=== PATIENT | male | born 1955 | race Caucasian/White ===

== ENCOUNTER → 2017-11-04 | Outpatient (CLI) | payer OTHER ==
[~2017-11-04] MED LIST: ALBUTEROL 0.083% (NEB) 2.5 MG/3 ML AMP
== END | disposition home or self-care (01) ==
LOC: PUL 13:55
DX: R91.8 Other nonspecific abnormal finding of lung field (principal); J44.9 Chronic obstructive pulmonary disease, unspecified
CPT/HCPCS: 94060; 94726; 94729

== ENCOUNTER 2018-02-08 07:01 | Inpatient (IN) | payer OTHER ==
[~2018-02-08 07:01] MED LIST changes: -ALBUTEROL 0.083% (NEB) 2.5 MG/3 ML AMP; +PROPOFOL 200 MG INJ; +SUCCINYLCHOLINE CHLORIDE 100 MG/5 ML SYG IV
[2018-02-08] MEDS ORDERED: MINERAL OIL LIGHT 10 ML VIAL (09:20)
[2018-02-08] MEDS ORDERED: BUPIVACAINE 0.5%/EPI (SDV) 30 ML INJ (09:32)
[2018-02-08] MEDS ORDERED: THROMBIN 5000 UNIT VIAL (09:32)
[2018-02-08] MEDS ORDERED: LIDOCAINE 0.5% (MDV) 50 ML INJ (09:32)
[2018-02-08] MEDS ORDERED: ROCURONIUM 50 MG INJ (09:36)
[2018-02-08] MEDS ORDERED: PROPOFOL 20 ML (09:36)
[2018-02-08] MEDS ORDERED: MIDAZOLAM 1 MG/ML 2 ML INJ (09:36)
[2018-02-08] MEDS ORDERED: LIDOCAINE 1% (MDV) 20 ML INJ (09:36)
[2018-02-08] MEDS ORDERED: CEFAZOLIN 1 GM INJ (10:48)
[2018-02-08] MEDS ORDERED: ONDANSETRON 4 MG INJ (11:06)
[2018-02-08] MEDS ORDERED: FAMOTIDINE 20 MG INJ (11:06)
[2018-02-08] MEDS ORDERED: DEXAMETHASONE 4 MG/ML 1 ML INJ (11:06)
[2018-02-08] MEDS ORDERED: ACETAMINOPHEN 1000MG/100ML IV 100 ML (11:07)
[2018-02-08] MEDS ORDERED: PHENYLephrine (100 MCG/ML) 5ML SYG ×3 (11:12→13:49)
[2018-02-08] MEDS ORDERED: FENTAnyl 50 MCG/ML VIAL (11:37)
[2018-02-08] MEDS ORDERED: LABETALOL HCL 20MG INJ (13:35)
[2018-02-08] MEDS ORDERED: SUGAMMADEX SODIUM 200 MG/2 ML VIAL IV (13:48)
[2018-02-08] MEDS: HYDROmorphONE 4 MG/ML SYG IV (14:01)
[2018-02-08] MEDS ORDERED: FLUMAZENIL 0.5 MG INJ (14:28)
[2018-02-08] MEDS ORDERED: LABETALOL HCL 20MG INJ IV (15:00)
[2018-02-08] MEDS: HYDROmorphONE 0.5 MG/0.5 ML SYG IV ×5 (15:11→16:01)
[2018-02-08] MEDS: ONDANSETRON 4 MG INJ IV (15:24)
[2018-02-08] MEDS: hydrALAzine 20 MG INJ IV ×2 (15:33→18:15)
[2018-02-08 16:01] LABS: ADD MAN DIFF? NO
[2018-02-08 16:04] LABS: WHITE BLOOD COUNT 10.7 10^3/ul (4.8-10.8)
[2018-02-08 16:04] LABS: BASOPHILS % 0.2 % (0.0-2.0); EOSINOPHILS % 0.1 % (0.0-7.0); HEMATOCRIT 39.8 % (42.0-52.0); HEMOGLOBIN 13.3 g/dl (14.0-18.0); LYMPHOCYTES % 8.9 % (15.0-51.0); MEAN CORPUSCULAR HEMOGLOBIN 30.1 pg (29.0-33.0); MEAN CORPUSCULAR HGB CONC 33.4 g/dl (32.0-37.0); MEAN PLATELET VOLUME 11.3 fl (7.4-10.4); MONOCYTE # 0.2 10^3/ul (0.3-0.9); NEUTROPHIL # 9.5 10^3/ul (1.6-7.5); NEUTROPHILS % 88.4 % (39.0-77.0); PLATELET COUNT 151 10^3/UL (140-415); RED BLOOD COUNT 4.42 10^6/ul (4.70-6.10); RED CELL DISTRIBUTION WIDTH 12.5 % (11.5-14.5)
[2018-02-08 16:27] LABS: ANION GAP 17 (8-16); BLOOD UREA NITROGEN 12 mg/dl (7-20); CARBON DIOXIDE 23 mmol/L (21-31); CHLORIDE 105 mmol/L (97-110); CREATININE 0.83 mg/dl (0.61-1.24); GLUCOSE 194 mg/dl (70-220); POTASSIUM 3.7 mmol/L (3.5-5.1); SODIUM 141 mmol/L (135-144)
[2018-02-08] MEDS: 1/2 NS + KCL 20 MEQ 1,000 ML IV (17:00)
[2018-02-08] MEDS ORDERED: GLUCOSE GEL 15 GRAM TUBE PO ×2 (17:30)
[2018-02-08] MEDS ORDERED: GLUCOSE GEL 15 GRAM TUBE BUCCAL (17:30)
[2018-02-08] MEDS ORDERED: DEXTROSE 50% 50 ML SYRINGE IV ×2 (17:30)
[2018-02-08] MEDS: HYDROmorphONE 2 MG/ML SYG IV (17:30)
[2018-02-08] MEDS ORDERED: GLUCAGON 1 MG INJ IM (17:30)
[2018-02-08] MEDS: ALBUTEROL/IPRATROPIUM (NEB) 3 ML AMP HHN ×2 (17:48→23:35)
[2018-02-08] MEDS: CLONIDINE 0.1 MG/24 HR PATCH TRANSDERM (18:37)
[2018-02-08] MEDS: INSULIN ASPART [NOVOLOG] 3 ML PEN SC ×2 (18:39→21:16)
[2018-02-08 18:51] LABS: IRON 69 ug/dl (35-150)
[2018-02-08 18:55] LABS: MAGNESIUM 1.6 mg/dl (1.7-2.5)
[2018-02-08 19:01] LABS: % IRON SATURATION 32 % SAT (22-52); TOTAL IRON BINDING CAPACITY 219 ug/dl (241-421)
[2018-02-08] MEDS: MAGNESIUM SULFATE 2 GM/50 ML 50 ML IVPB (19:42)
[2018-02-08] MEDS: CEFAZOLIN 1 GM/50 ML (PMX) 50 ML IVPB (22:03)
[2018-02-08] MEDS: ACETAMINOPHEN 325 MG TAB PO (22:57)
[2018-02-09] MEDS: ONDANSETRON 4 MG INJ IV ×2 (00:14→18:19)
[2018-02-09] MEDS: HYDROmorphONE 2 MG/ML SYG IV ×4 (00:15→16:42)
[2018-02-09] MEDS: ACCU-CHEK XX (01:40)
[2018-02-09] MEDS: 1/2 NS + KCL 20 MEQ 1,000 ML IV ×2 (02:20→08:20)
[2018-02-09 05:39] LABS: ADD MAN DIFF? NO
[2018-02-09 05:48] LABS: WHITE BLOOD COUNT 12.7 10^3/ul (4.8-10.8)
[2018-02-09 05:48] LABS: BASOPHILS % 0.1 % (0.0-2.0); HEMATOCRIT 38.5 % (42.0-52.0); HEMOGLOBIN 12.9 g/dl (14.0-18.0); LYMPHOCYTES # 0.6 10^3/ul (0.8-2.9); LYMPHOCYTES % 4.9 % (15.0-51.0); MEAN CORPUSCULAR HEMOGLOBIN 30.3 pg (29.0-33.0); MEAN CORPUSCULAR HGB CONC 33.5 g/dl (32.0-37.0); MEAN CORPUSCULAR VOLUME 90.4 fl (82.0-101.0); MEAN PLATELET VOLUME 11.3 fl (7.4-10.4); MONOCYTE # 0.9 10^3/ul (0.3-0.9); MONOCYTES % 6.8 % (0.0-11.0); NEUTROPHIL # 11.2 10^3/ul (1.6-7.5); NEUTROPHILS % 87.6 % (39.0-77.0); PLATELET COUNT 181 10^3/UL (140-415); RED BLOOD COUNT 4.26 10^6/ul (4.70-6.10); RED CELL DISTRIBUTION WIDTH 12.8 % (11.5-14.5)
[2018-02-09] MEDS: CEFAZOLIN 1 GM/50 ML (PMX) 50 ML IVPB ×3 (06:16→22:01)
[2018-02-09] MEDS: PANTOPRAZOLE 40 MG INJ IV (06:17)
[2018-02-09 06:20] LABS: ALANINE AMINOTRANSFERASE 41 IU/L (13-69); ALBUMIN 3.5 g/dl (3.3-4.9); ALBUMIN/GLOBULIN RATIO 1.25; ALKALINE PHOSPHATASE 42 IU/L (42-121); ANION GAP 14 (8-16); ASPARTATE AMINO TRANSFERASE 29 IU/L (15-46); BILIRUBIN,INDIRECT 0.6 mg/dl (0-1.1); BILIRUBIN,TOTAL 0.6 mg/dl (0.2-1.3); BLOOD UREA NITROGEN 13 mg/dl (7-20); CALCIUM 8.2 mg/dl (8.4-10.2); CARBON DIOXIDE 28 mmol/L (21-31); CHLORIDE 101 mmol/L (97-110); CREATININE 0.83 mg/dl (0.61-1.24); GLUCOSE 161 mg/dl (70-220); POTASSIUM 4.6 mmol/L (3.5-5.1); SODIUM 138 mmol/L (135-144); TOTAL PROTEIN 6.3 g/dl (6.1-8.1)
[2018-02-09] MEDS: ALBUTEROL/IPRATROPIUM (NEB) 3 ML AMP HHN ×2 (08:00→16:22)
[2018-02-09] MEDS: LOSARTAN 25 MG TAB PO (08:32)
[2018-02-09] MEDS: INSULIN ASPART [NOVOLOG] 3 ML PEN SC ×4 (08:40→21:03)
[2018-02-09] MEDS: ACETAMINOPHEN 325 MG TAB PO (18:19)
[2018-02-10] MEDS: HYDROmorphONE 2 MG/ML SYG IV ×6 (00:30→23:22)
[2018-02-10] MEDS: ACCU-CHEK XX (02:05)
[2018-02-10] MEDS: 1/2 NS + KCL 20 MEQ 1,000 ML IV (04:28)
[2018-02-10 05:03] LABS: ADD MAN DIFF? NO
[2018-02-10 05:10] LABS: WHITE BLOOD COUNT 10.6 10^3/ul (4.8-10.8)
[2018-02-10 05:10] LABS: BASOPHILS % 0.2 % (0.0-2.0); EOSINOPHILS % 0.2 % (0.0-7.0); HEMATOCRIT 36.9 % (42.0-52.0); HEMOGLOBIN 12.3 g/dl (14.0-18.0); LYMPHOCYTES # 0.8 10^3/ul (0.8-2.9); LYMPHOCYTES % 7.6 % (15.0-51.0); MEAN CORPUSCULAR HEMOGLOBIN 30.7 pg (29.0-33.0); MEAN CORPUSCULAR HGB CONC 33.3 g/dl (32.0-37.0); MEAN PLATELET VOLUME 10.8 fl (7.4-10.4); MONOCYTES % 9.3 % (0.0-11.0); NEUTROPHIL # 8.7 10^3/ul (1.6-7.5); NEUTROPHILS % 82.2 % (39.0-77.0); PLATELET COUNT 150 10^3/UL (140-415); RED BLOOD COUNT 4.01 10^6/ul (4.70-6.10)
[2018-02-10 05:42] LABS: ANION GAP 10 (8-16); BLOOD UREA NITROGEN 13 mg/dl (7-20); CALCIUM 8.3 mg/dl (8.4-10.2); CARBON DIOXIDE 33 mmol/L (21-31); CHLORIDE 99 mmol/L (97-110); CREATININE 0.82 mg/dl (0.61-1.24); GLUCOSE 184 mg/dl (70-220); MAGNESIUM 1.9 mg/dl (1.7-2.5); PHOSPHORUS 2.6 mg/dl (2.5-4.9); POTASSIUM 4.7 mmol/L (3.5-5.1); SODIUM 137 mmol/L (135-144)
[2018-02-10] MEDS: PANTOPRAZOLE 40 MG INJ IV (06:31)
[2018-02-10] MEDS: CEFAZOLIN 1 GM/50 ML (PMX) 50 ML IVPB ×3 (06:38→22:36)
[2018-02-10] MEDS: LOSARTAN 25 MG TAB PO (08:02)
[2018-02-10] MEDS: INSULIN ASPART [NOVOLOG] 3 ML PEN SC ×4 (08:19→21:19)
[2018-02-10] MEDS: POLYETHYLENE GLYCOL 17 GM PACKET PO ×2 (09:00→21:13)
[2018-02-10] MEDS ORDERED: ACETYLCYSTEINE 20% 4 ML VIAL NEB (09:00)
[2018-02-10] MEDS: ACETYLCYSTEINE 20% 4 ML VIAL NEB ×2 (09:17→17:09)
[2018-02-10] MEDS: ALBUTEROL/IPRATROPIUM (NEB) 3 ML AMP HHN ×4 (09:17→19:55)
[2018-02-10 10:37] LABS: ADD UMIC NO; UR ASCORBIC ACID NEGATIVE (NEGATIVE); UR BILIRUBIN (Dip) NEGATIVE (NEGATIVE); UR BLOOD (Dip) NEGATIVE (NEGATIVE); UR CLARITY CLEAR (CLEAR); UR COLOR COLORLESS (YELLOW); UR GLUCOSE (Dip) NEGATIVE (NEGATIVE); UR KETONES (Dip) NEGATIVE (NEGATIVE); UR LEUKOCYTE ESTERASE (Dip) NEGATIVE Leu/ul (NEGATIVE); UR NITRITE (Dip) NEGATIVE (NEGATIVE); UR SPECIFIC GRAVITY (Dip) 1.003 (1.003-1.030); UR TOTAL PROTEIN (Dip) NEGATIVE (NEGATIVE); UR UROBILINOGEN (Dip) NEGATIVE (NEGATIVE)
[2018-02-10] MEDS: DOCUSATE SODIUM 100 MG CAP PO ×2 (11:13→21:00)
[2018-02-11] MEDS: ACCU-CHEK XX (02:00)
[2018-02-11] MEDS: PANTOPRAZOLE 40 MG INJ IV (06:19)
[2018-02-11] MEDS: ACETAMINOPHEN 325 MG TAB PO (06:24)
[2018-02-11] MEDS: ACETYLCYSTEINE 20% 4 ML VIAL NEB ×2 (08:00→16:00)
[2018-02-11] MEDS: LOSARTAN 25 MG TAB PO (08:23)
[2018-02-11] MEDS: POLYETHYLENE GLYCOL 17 GM PACKET PO ×2 (08:25→20:53)
[2018-02-11] MEDS: DOCUSATE SODIUM 100 MG CAP PO ×2 (08:25→20:52)
[2018-02-11] MEDS: INSULIN ASPART [NOVOLOG] 3 ML PEN SC ×4 (08:41→20:53)
[2018-02-11] MEDS: 1/2 NS + KCL 20 MEQ 1,000 ML IV ×2 (09:00→17:57)
[2018-02-11 12:02] LABS: HEMOGLOBIN A1C 6.5 % (0-5.9)
[2018-02-11] MEDS: ALBUTEROL/IPRATROPIUM (NEB) 3 ML AMP HHN ×4 (13:30→23:58)
[2018-02-11] MEDS ORDERED: CEFAZOLIN 1 GM/50 ML (PMX) 50 ML IVPB (22:00)
[2018-02-11] MEDS: HYDROmorphONE 2 MG/ML SYG IV (22:50)
[2018-02-12] MEDS: ACCU-CHEK XX (02:00)
[2018-02-12] MEDS: PANTOPRAZOLE 40 MG INJ IV (05:49)
[2018-02-12] MEDS: DOCUSATE SODIUM 100 MG CAP PO ×2 (08:14→21:00)
[2018-02-12] MEDS: LOSARTAN 25 MG TAB PO (08:15)
[2018-02-12] MEDS: INSULIN ASPART [NOVOLOG] 3 ML PEN SC ×4 (08:29→21:22)
[2018-02-12] MEDS: POLYETHYLENE GLYCOL 17 GM PACKET PO ×2 (08:30→21:00)
[2018-02-12] MEDS: ALBUTEROL/IPRATROPIUM (NEB) 3 ML AMP HHN ×3 (08:39→23:55)
[2018-02-12] MEDS: ACETYLCYSTEINE 20% 4 ML VIAL NEB ×2 (08:39→16:55)
[2018-02-12] MEDS: 1/2 NS + KCL 20 MEQ 1,000 ML IV (13:44)
[2018-02-12] MEDS: ACETAMINOPHEN 325 MG TAB PO (21:54)
[2018-02-13] MEDS: HYDROmorphONE 2 MG/ML SYG IV (01:03)
[2018-02-13] MEDS: ACCU-CHEK XX (01:41)
[2018-02-13] MEDS: PANTOPRAZOLE 40 MG INJ IV (05:36)
[2018-02-13] MEDS: INSULIN ASPART [NOVOLOG] 3 ML PEN SC ×4 (07:55→21:00)
[2018-02-13] MEDS: ALBUTEROL/IPRATROPIUM (NEB) 3 ML AMP HHN ×2 (08:03→16:15)
[2018-02-13] MEDS: ACETYLCYSTEINE 20% 4 ML VIAL NEB ×2 (08:13→16:00)
[2018-02-13] MEDS: 1/2 NS + KCL 20 MEQ 1,000 ML IV (08:20)
[2018-02-13] MEDS: LOSARTAN 25 MG TAB PO (08:20)
[2018-02-13] MEDS: DOCUSATE SODIUM 100 MG CAP PO ×2 (08:20→21:00)
[2018-02-13] MEDS: POLYETHYLENE GLYCOL 17 GM PACKET PO ×2 (08:20→21:00)
[2018-02-13 08:59] LABS: ADD MAN DIFF? NO
[2018-02-13 09:02] LABS: BASOPHILS % 0.3 % (0.0-2.0); EOSINOPHILS # 0.3 10^3/ul (0.0-0.5); EOSINOPHILS % 4.4 % (0.0-7.0); HEMOGLOBIN 10.9 g/dl (14.0-18.0); LYMPHOCYTES # 1.2 10^3/ul (0.8-2.9); LYMPHOCYTES % 19.6 % (15.0-51.0); MEAN CORPUSCULAR HEMOGLOBIN 30.4 pg (29.0-33.0); MEAN CORPUSCULAR VOLUME 92.2 fl (82.0-101.0); MEAN PLATELET VOLUME 10.6 fl (7.4-10.4); MONOCYTE # 0.6 10^3/ul (0.3-0.9); MONOCYTES % 9.6 % (0.0-11.0); NEUTROPHIL # 3.9 10^3/ul (1.6-7.5); NEUTROPHILS % 65.6 % (39.0-77.0); PLATELET COUNT 160 10^3/UL (140-415); RED BLOOD COUNT 3.58 10^6/ul (4.70-6.10); RED CELL DISTRIBUTION WIDTH 12.3 % (11.5-14.5)
[2018-02-13 09:02] LABS: WHITE BLOOD COUNT 5.9 10^3/ul (4.8-10.8)
[2018-02-13 09:34] LABS: ALANINE AMINOTRANSFERASE 37 IU/L (13-69); ALBUMIN 3.1 g/dl (3.3-4.9); ALBUMIN/GLOBULIN RATIO 1.14; ALKALINE PHOSPHATASE 39 IU/L (42-121); ANION GAP 2 (8-16); ASPARTATE AMINO TRANSFERASE 16 IU/L (15-46); BILIRUBIN,INDIRECT 0.6 mg/dl (0-1.1); BILIRUBIN,TOTAL 0.6 mg/dl (0.2-1.3); BLOOD UREA NITROGEN 13 mg/dl (7-20); CALCIUM 8.7 mg/dl (8.4-10.2); CARBON DIOXIDE 37 mmol/L (21-31); CHLORIDE 103 mmol/L (97-110); CREATININE 0.75 mg/dl (0.61-1.24); GLUCOSE 140 mg/dl (70-220); POTASSIUM 4.3 mmol/L (3.5-5.1); SODIUM 138 mmol/L (135-144); TOTAL PROTEIN 5.8 g/dl (6.1-8.1)
[2018-02-13] MEDS: HYDROmorphONE 2 MG TAB PO (21:19)
[2018-02-14] MEDS: ACCU-CHEK XX (01:57)
[2018-02-14] MEDS: PANTOPRAZOLE 40 MG INJ IV (05:55)
[2018-02-14] MEDS: 1/2 NS + KCL 20 MEQ 1,000 ML IV (06:36)
[2018-02-14] MEDS: ACETYLCYSTEINE 20% 4 ML VIAL NEB ×2 (08:00→15:49)
[2018-02-14] MEDS: ALBUTEROL/IPRATROPIUM (NEB) 3 ML AMP HHN ×4 (08:09→23:19)
[2018-02-14] MEDS: INSULIN ASPART [NOVOLOG] 3 ML PEN SC ×4 (08:12→21:00)
[2018-02-14] MEDS: LOSARTAN 25 MG TAB PO (08:48)
[2018-02-14] MEDS: POLYETHYLENE GLYCOL 17 GM PACKET PO ×2 (08:49→21:00)
[2018-02-14] MEDS: DOCUSATE SODIUM 100 MG CAP PO ×2 (08:49→21:13)
[2018-02-14] MEDS: HYDROmorphONE 2 MG TAB PO (21:56)
[2018-02-15] MEDS: HYDROmorphONE 2 MG TAB PO (02:03)
[2018-02-15] MEDS: ACCU-CHEK XX (02:30)
[2018-02-15] MEDS: 1/2 NS + KCL 20 MEQ 1,000 ML IV ×2 (02:36→02:58)
[2018-02-15] MEDS: PANTOPRAZOLE 40 MG INJ IV (05:56)
[2018-02-15] MEDS: POLYETHYLENE GLYCOL 17 GM PACKET PO (07:53)
[2018-02-15] MEDS: ACETYLCYSTEINE 20% 4 ML VIAL NEB (08:19)
[2018-02-15] MEDS: ALBUTEROL/IPRATROPIUM (NEB) 3 ML AMP HHN (08:19)
[2018-02-15] MEDS: LOSARTAN 50 MG TAB PO (08:34)
[2018-02-15] MEDS: DOCUSATE SODIUM 100 MG CAP PO (08:35)
[2018-02-15] MEDS: INSULIN ASPART [NOVOLOG] 3 ML PEN SC ×2 (08:41→12:11)
[2018-02-15] MEDS: ACETAMINOPHEN 325 MG TAB PO (14:13)
== END 2018-02-15 14:20 | disposition home or self-care (01) | DRG 165 ==
LOC: REC 07:01 → TEL 02-11 05:12 → ICU 14:51
PROC: 0BTC0ZZ Resection of Right Upper Lung Lobe, Open Approach (ICD-10-PCS; principal; 2018-02-08 09:00)
PROC: 07B70ZX Excision of Thorax Lymphatic, Open Approach, Diagnostic (ICD-10-PCS; 2018-02-08 09:00)
DX: C34.11 Malignant neoplasm of upper lobe, right bronchus or lung (principal); E11.9 Type 2 diabetes mellitus without complications; I10 Essential (primary) hypertension; E78.5 Hyperlipidemia, unspecified; K64.9 Unspecified hemorrhoids; E83.42 Hypomagnesemia; E66.9 Obesity, unspecified; J44.9 Chronic obstructive pulmonary disease, unspecified; Z68.29 Body mass index [BMI] 29.0-29.9, adult; M54.9 Dorsalgia, unspecified; Z87.891 Personal history of nicotine dependence
CPT/HCPCS: 71045; 71046; 80048; 80053; 81003; 82962; 83036; 83540; 83735; 84100; 85025; 86850; 86900; 86901; 86920; 87081; 93005; 94640; 94664; 97110; 97116; 97161; 97530